=== PATIENT | male | born 1955 | race African-American/Black ===

== ENCOUNTER 2017-05-07 23:16 | Emergency (ER) | payer MEDICAID, OTHER ==
[~2017-05-07] VITALS: Ht 180.3 cm; Wt 82.0 kg
[2017-05-08] MEDS ORDERED: BACITRACIN ZINC OINT UDPKT TOP ONE (06:45)
[2017-05-08] MEDS ORDERED: TETANUS, DIPHTHERIA, PERTUSSIS VAC/PF 0.5ML (>7YR OLD) IM ONE (06:45)
[2017-05-08] MEDS ORDERED: LIDOCAINE HCL 1% 20ML VIAL (Pyxis) INJ MC ONE (06:45)
[2017-05-08 09:48] VITALS: BP 133/72
== END 2017-05-08 09:50 | disposition home or self-care (01) ==
LOC: ER 23:16
DX: S01.01XA Laceration without foreign body of scalp, initial encounter (principal); M54.2 Cervicalgia; Y08.89XA Assault by other specified means, initial encounter; Y93.89 Activity, other specified; Y92.89 Other specified places as the place of occurrence of the external cause; Y99.8 Other external cause status
CPT/HCPCS: 12001; 70450; 90471; 90715; 99284; J3490

== ENCOUNTER 2024-02-20 08:23 | Emergency (ER) | payer MEDICARE, MEDICAID ==
[~2024-02-20] VITALS: Ht 172.7 cm; Wt 70.0 kg
[2024-02-20 08:23] VITALS: TEMP 98; O2SAT 97
[2024-02-20] MEDS ORDERED: METH-653 MT (11:14)
[2024-02-20] MEDS ORDERED: LIDO700A15 TP (11:14)
[2024-02-20] MEDS ORDERED: IBUP-2028 MT (11:14)
[2024-02-20] MEDS ORDERED: METHOCARBAMOL 750MG TABLET PO SCH (11:15)
[2024-02-20] MEDS: KETOROLAC 30MG/ML VIAL IM ONE (11:27)
[2024-02-20 11:40] VITALS: BP 128/74; PULSE 88; RESP 16; O2SAT 99
== END 2024-02-20 11:44 | disposition home or self-care (01) ==
LOC: ER 08:23
DX: M47.26 Other spondylosis with radiculopathy, lumbar region (principal)
CPT/HCPCS: 72100; 72170; 96372; 99284